=== PATIENT | female | born 1965 | race Caucasian/White ===

== ENCOUNTER → 2017-03-31 | Outpatient (CLI) | payer BC ==
--- NOTE | 2017-03-31 11:45 | DIAGNOSTIC IMAGING REPORT ---
LEFT FOOT 3 VIEWS HISTORY: LEFT FOOT PAIN COMPARISON: None. FINDINGS: There is no fracture or dislocation. Soft tissues are unremarkable. No radiopaque foreign bodies. The Lisfranc joint is intact. Small plantar heel spur. IMPRESSION: No acute abnormality within the left foot. Small plantar heel spur. Electronically signed by: Alo Madera M.D. 03/31/2017 11:43 AM Dictated Date/Time: 03/31/2017 11:42 AM
== END | disposition home or self-care (01) ==
LOC: C.RAD1850 11:07
PROVIDERS: ATTEND Family Medicine
DX: M76.72 Peroneal tendinitis, left leg (principal); M79.672 Pain in left foot